=== PATIENT | female | born 1950 | race Caucasian/White ===

== ENCOUNTER → 2017-02-02 | Outpatient (CLI) | payer OTHER, BC ==
--- NOTE | ~2017-02-02 | EKG ---
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
== END ==
LOC: CV 15:33
DX: E11.9 Type 2 diabetes mellitus without complications (principal)

== ENCOUNTER → 2017-04-27 | Outpatient (CLI) | payer OTHER, BC | LOC: MRI 10:00 → EDSTATUS 14:52 → MRI 15:29 | DX: M17.11 Unilateral primary osteoarthritis, right knee (principal); M25.461 Effusion, right knee; M94.261 Chondromalacia, right knee; E66.9 Obesity, unspecified; E11.9 Type 2 diabetes mellitus without complications ==

== ENCOUNTER → 2018-10-18 | Outpatient (CLI) | payer OTHER, BC ==
[~2018-10-18] VITALS: Ht 162.6 cm; Wt 86.2 kg
[~2018-10-18] MED LIST: ABILIFY 5 MG TAB5 MG PO; ATIVAN1 MG PO; CRANBERRY 6,001 EACH PO; GLUCOSAMINE CH1 EAC4 PO; HAIR, SKIN AND1 EAC2 PO; LOPERAMIDE 2 MG2 M1 PO; METFORMIN HCL500 MG PO; NORCO 7.5-3251 EACH PO; PAXIL10 MG PO; PRESERVISION A1 EAC2 PO; SYNTHROID125 MC1 PO; WELLBUTRIN XL150 MG PO; [UNRECOGNIZED DRUG - OTHER] PO
--- NOTE | ~2018-10-18 | P ---
[facility] [place] [address] PROCEDURE REPORT Name: VALENTINA JAEGER Room #: [facility] [id number] Admission: 10/18/18 ������������������ Attend Phys: Marvel Hernandez Discharge: ������������������ Date of : 46 Report #: [id number] THIS REPORT FOR: //name// CC: Marvel Zamorano FAM unknown MONICA FERNÁNDEZ MD DATE OF SERVICE: 10/18/2018 PROCEDURE PERFORMED: Upper endoscopy with biopsies and esophageal dilation. HISTORY OF PRESENT ILLNESS: The patient is a 67-year-old female who was seen in the office on 09/28/2018 for dysphagia ongoing for approximately a year, typically worse with solids. No previous history of upper endoscopy. She does take Pepcid on a p.r.n. basis for intermittent heartburn symptoms. She also has a history of irritable bowel syndrome, diarrhea dependent. Plan is for EGD. DESCRIPTION OF PROCEDURE: The risks and benefits of the procedure were explained to the patient, those risks including but not limited to bleeding, perforation and the risk of sedation. She understood these risks and gave informed consent. Sedation was given using propofol per anesthesia. Next, using a standard Olympus upper endoscope, the scope was placed to the patient's mouth and advanced under direct vision through the esophagus, stomach and into the second portion of the duodenum. The larynx was normal in appearance. The upper and mid esophagus was normal. In the distal esophagus at the GE junction, mild grade A erosive esophagitis was noted. No obvious stricture. Overall, the gastric mucosa was normal in the fundus. There was a mild gastritis noted in the body and antrum. Biopsies were obtained to rule out H. pylori. The pylorus was normal and patent. The duodenal bulb, first and second portion were all normal. Biopsies were obtained to rule out the possibility of celiac sprue. The scope was then brought back up into the patient's stomach and a Savary guidewire was inserted through the scope, leaving the guidewire in place as the scope was then withdrawn. A 48-Persian Savary dilation of the esophagus was then performed without difficulty. The wire and dilator were removed. The scope was reintroduced into the patient's stomach. There was no evidence of mucosal tear after dilation. The scope was then withdrawn and the procedure terminated. The patient tolerated the procedure well. IMPRESSION: 1. Grade A erosive esophagitis. 2. Mild gastritis. 3. Otherwise, normal upper endoscopy. [address] [address] PROCEDURE REPORT Name: VALENTINA JAEGER Room #: REG CLJoao Larson#: [id number] Admission: 10/18/18 ������������������ Attend Phys: Marvel Hernandez Discharge: ������������������ Date of : 46 Report #: [id number] RECOMMENDATIONS: 1. Await biopsy results. 2. Recommend a trial of daily PPI therapy. 3. Observe the patient post-dilation. Thank you for allowing me to participate in her care. ��������������������������������������������� ���������������������������������������� By: ��������������������������������������������� 0855 [id number] Marvel Zamorano, /kisha
--- NOTE | 2018-10-19 13:08 | PATH ---
[facility] [place] [address] [address] PATHOLOGY RPT PROCEDURE Name: VALENTINA BROWNING Room #: REG PRADIP Cr.#: [id number] ������������������ Admission: 10/18/18 ������������������ Date of : 46 Discharge: Report #: [id number] Path Case #: [id number] [facility] Accession Number: [id number] . 01 Material submitted: . PART A: duodenum - BX DUODENAL POLYP PART B: stomach - BX GASTRITIS R/O H PYLORI . 01 Clinical history: . Pre-OP DX: Dysphagia Post-OP DX: Duodenal ulcer, gastritis, esophagitis, dysphagia . 02 Diagnosis: A. Small bowel mucosa, duodenal polyp, endoscopic biopsy: - Polypoid mucosa with focal fundic-type metaplasia as well as nonspecific acute and chronic duodenitis. - Negative for villous blunting or increase in intraepithelial lymphocytes or dysplasia. . B. Gastric mucosa, gastritis R/O H. pylori, endoscopic biopsy: - Mild reactive gastropathy. - Negative for intestinal metaplasia or atrophy. - Negative for Helicobacter pylori (properly controlled immunohistochemical stain performed). (IUV:mike; 10/19/2018) . . . QMS/10/19/2018 . 02 Electronically signed: . Aliza Daniel MD, Pathologist NPI- [id number] . 01 Gross description: . A. Received in formalin labeled "Valentina Browning, JOO duodenal polyp," are 3 segments of bourne soft tissue measuring 0.9 x 0.8 x 0.3 cm in aggregate dimensions and ranging from 0.3 to 0.5 cm in maximum dimension. The specimen is submitted entirely in cassette A1. . B. Received in formalin labeled "Valentina Browning BX gastritis, rule out H. pylori," are 3 segments of bourne soft tissue measuring 1.3 x 1.0 x 0.2 cm in aggregate dimensions and ranging from 0.5 to 0.7 cm in maximum dimension. The specimen is submitted entirely in cassette B1. (TSD; 10/18/2018) TOB/TOB . [address] [place] [address] PATHOLOGY RPT PROCEDURE Name: VALENTINA BROWNING Room #: REG PRADIP Larson#: [id number] ������������������ Admission: 10/18/18 ������������������ Date of : 46 Discharge: Report #: [id number] Path Case #: [id number] Pathologist provided ICD-10: K29.80, K31.7 . 02 CPT . 456231, 980831, [id number] Specimen Comment: A courtesy copy of this report has been sent to Specimen Comment: [phone], . Specimen Comment: Report sent to / DR FERNÁNDEZ Performed at: [address], [place] [id number] MD Carlo Joseph MD Phone: [phone] Performed at: [address] [id number] MD Aliza Daniel MD Phone: [phone]
== END | disposition home or self-care (01) ==
LOC: GI 06:53
DX: K29.80 Duodenitis without bleeding (principal); K31.9 Disease of stomach and duodenum, unspecified; R13.19 Other dysphagia; E11.9 Type 2 diabetes mellitus without complications; E03.9 Hypothyroidism, unspecified; F32.9 Major depressive disorder, single episode, unspecified; Z87.19 Personal history of other diseases of the digestive system; Z98.890 Other specified postprocedural states; Z87.442 Personal history of urinary calculi; Z85.828 Personal history of other malignant neoplasm of skin; Z87.891 Personal history of nicotine dependence; Z79.899 Other long term (current) drug therapy; Z88.8 Allergy status to other drugs, medicaments and biological substances; Z79.891 Long term (current) use of opiate analgesic
CPT/HCPCS: 62110; 62900

== ENCOUNTER 2020-11-12 07:54 | Emergency (ER) | payer OTHER ==
[~2020-11-12] VITALS: Ht 160 cm; Wt 83.0 kg
[2020-11-12 08:05] VITALS: BP 131/80
[2020-11-12] MEDS ORDERED: AUGMENTIN 875-1 EACH PO (08:29)
== END 2020-11-12 08:50 | disposition home or self-care (01) ==
LOC: ER 07:54
DX: S51.851A Open bite of right forearm, initial encounter (principal); F32.9 Major depressive disorder, single episode, unspecified; E03.9 Hypothyroidism, unspecified; E11.9 Type 2 diabetes mellitus without complications; Z79.2 Long term (current) use of antibiotics; Z79.899 Other long term (current) drug therapy; Z88.1 Allergy status to other antibiotic agents; Z88.6 Allergy status to analgesic agent; W54.0XXA Bitten by dog, initial encounter; Y93.89 Activity, other specified; Y92.89 Other specified places as the place of occurrence of the external cause; Y99.9 Unspecified external cause status